=== PATIENT | male | born 1950 | race Caucasian/White ===

== ENCOUNTER 2017-07-25 23:31 | Emergency (ER) | payer MEDICAID ==
[2017-07-26 02:31] LABS: URINE PH (Dip) POC 5.5 (5.0-8.5)
[2017-07-26 02:31] LABS: URINE BLOOD (Dip) POC Negative (NEGATIVE); URINE GLUCOSE (Dip) POC Negative (NEGATIVE); URINE KETONES (Dip) POC Negative (NEGATIVE); URINE LEUKOCYTE EST (Dip) POC Negative (NEGATIVE); URINE NITRITE (Dip) POC Negative (NEGATIVE); URINE TOTAL PROTEIN POC Negative (NEGATIVE)
[2017-07-26 02:35] LABS: ADD MAN DIFF? NO
[2017-07-26 02:38] LABS: BASOPHIL # 0.1 10^3/ul (0.0-0.1); BASOPHILS % 0.8 % (0.0-2.0); EOSINOPHILS # 0.2 10^3/ul (0.0-0.5); EOSINOPHILS % 2.6 % (0.0-7.0); HEMATOCRIT 41.3 % (42.0-52.0); LYMPHOCYTES # 2.1 10^3/ul (0.8-2.9); LYMPHOCYTES % 32.9 % (15.0-51.0); MEAN CORPUSCULAR HEMOGLOBIN 30.2 pg (29.0-33.0); MEAN CORPUSCULAR HGB CONC 33.9 g/dl (32.0-37.0); MEAN CORPUSCULAR VOLUME 89.2 fl (82.0-101.0); MEAN PLATELET VOLUME 9.1 fl (7.4-10.4); MONOCYTE # 0.6 10^3/ul (0.3-0.9); MONOCYTES % 8.7 % (0.0-11.0); NEUTROPHIL # 3.5 10^3/ul (1.6-7.5); NEUTROPHILS % 54.7 % (39.0-77.0); PLATELET COUNT 268 10^3/UL (140-415); RED BLOOD COUNT 4.63 10^6/ul (4.70-6.10); RED CELL DISTRIBUTION WIDTH 13.7 % (11.5-14.5)
[2017-07-26 02:38] LABS: WHITE BLOOD COUNT 6.5 10^3/ul (4.8-10.8)
[2017-07-26 02:59] LABS: ALANINE AMINOTRANSFERASE 33 IU/L (13-69); ALBUMIN 4.4 g/dl (3.3-4.9); ALBUMIN/GLOBULIN RATIO 1.33; ALKALINE PHOSPHATASE 69 IU/L (42-121); ANION GAP 15 (8-16); ASPARTATE AMINO TRANSFERASE 31 IU/L (15-46); BILIRUBIN,INDIRECT 0.1 mg/dl (0-1.1); BILIRUBIN,TOTAL 0.1 mg/dl (0.2-1.3); BLOOD UREA NITROGEN 8 mg/dl (7-20); CALCIUM 8.9 mg/dl (8.4-10.2); CARBON DIOXIDE 26 mmol/L (21-31); CHLORIDE 105 mmol/L (97-110); CREATININE 0.89 mg/dl (0.61-1.24); GLUCOSE 94 mg/dl (70-220); INR 0.93; LIPASE 238 U/L (23-300); PROTIME 12.6 Sec (11.9-14.9); SODIUM 142 mmol/L (135-144); TOTAL PROTEIN 7.7 g/dl (6.1-8.1)
== END 2017-07-26 05:33 | disposition home or self-care (01) ==
LOC: E/R 23:31
DX: R51 Headache (principal); I10 Essential (primary) hypertension; E11.9 Type 2 diabetes mellitus without complications; R07.9 Chest pain, unspecified
CPT/HCPCS: 36415; 70450; 80053; 80306; 81003; 83690; 85025; 85610; 85730; 99284-25

== ENCOUNTER 2018-11-20 18:39 | Inpatient (IN) | payer MEDICAID ==
[2018-11-20] MEDS: BELLADONNA/PHENOBARBITAL TAB PO (20:37)
[2018-11-20] MEDS: ONDANSETRON 4 MG INJ IV (20:37)
[2018-11-20] MEDS: LIDOCAINE/MYLANTA 40 ML BTL PO (20:37)
[2018-11-20] MEDS: FAMOTIDINE 20 MG INJ IV (20:37)
[2018-11-20] MEDS: HYDROmorphONE 1 MG/ML SYG IV (20:37)
[2018-11-20] MEDS: SOD CHLORIDE 0.9% 1,000 ML IV (20:37)
[2018-11-20 20:42] LABS: ADD MAN DIFF? NO
[2018-11-20 20:44] LABS: WHITE BLOOD COUNT 14.3 10^3/ul (4.8-10.8)
[2018-11-20 20:44] LABS: BASOPHILS % 0.2 % (0.0-2.0); EOSINOPHILS # 0.6 10^3/ul (0.0-0.5); EOSINOPHILS % 4.2 % (0.0-7.0); HEMATOCRIT 38.4 % (42.0-52.0); HEMOGLOBIN 12.7 g/dl (14.0-18.0); LYMPHOCYTES # 0.7 10^3/ul (0.8-2.9); LYMPHOCYTES % 4.6 % (15.0-51.0); MEAN CORPUSCULAR HGB CONC 33.1 g/dl (32.0-37.0); MEAN CORPUSCULAR VOLUME 87.7 fl (82.0-101.0); MEAN PLATELET VOLUME 9.5 fl (7.4-10.4); MONOCYTE # 0.7 10^3/ul (0.3-0.9); MONOCYTES % 5.2 % (0.0-11.0); NEUTROPHIL # 12.2 10^3/ul (1.6-7.5); NEUTROPHILS % 85.2 % (39.0-77.0); PLATELET COUNT 178 10^3/UL (140-415); RED BLOOD COUNT 4.38 10^6/ul (4.70-6.10); RED CELL DISTRIBUTION WIDTH 15.2 % (11.5-14.5)
[2018-11-20 20:55] LABS: ALANINE AMINOTRANSFERASE 14 IU/L (13-69); ALBUMIN 4.1 g/dl (3.3-4.9); ALBUMIN/GLOBULIN RATIO 1.24; ALKALINE PHOSPHATASE 88 IU/L (42-121); ANION GAP 11 (5-13); ASPARTATE AMINO TRANSFERASE 19 IU/L (15-46); BILIRUBIN,INDIRECT 1.2 mg/dl (0-1.1); BILIRUBIN,TOTAL 1.2 mg/dl (0.2-1.3); BLOOD UREA NITROGEN 12 mg/dl (7-20); CALCIUM 9.1 mg/dl (8.4-10.2); CARBON DIOXIDE 29 mmol/L (21-31); CHLORIDE 97 mmol/L (97-110); CREATININE 0.76 mg/dl (0.61-1.24); Estimated GFR > 60 mL/min (>60); GLUCOSE 113 mg/dl (70-220); LIPASE 55 U/L (23-300); POTASSIUM 3.5 mmol/L (3.5-5.1); SODIUM 137 mmol/L (135-144); TOTAL PROTEIN 7.4 g/dl (6.1-8.1)
[2018-11-20] MEDS: SOD CHLORIDE 0.9% 100 ML (22:49)
[2018-11-20] MEDS: IOHEXOL 300MG/ML 150 ML BTL (22:50)
[2018-11-21] MEDS: ERTAPENEM SODIUM 1 GM in SOD CHLORIDE 0.9% 100 ML IVPB (00:43)
[2018-11-21] MEDS ORDERED: DOCUSATE SODIUM 100 MG CAP PO (01:00)
[2018-11-21] MEDS ORDERED: NAPROXEN 500 MG TAB PO (01:00)
[2018-11-21] MEDS ORDERED: ACETAMINOPHEN 325 MG TAB PO (01:00)
[2018-11-21] MEDS ORDERED: BISACODYL (EC) 5 MG TAB PO (01:00)
[2018-11-21] MEDS ORDERED: ONDANSETRON 4 MG INJ IV (01:00)
[2018-11-21] MEDS ORDERED: NACL 0.9% 3 ML SYG IV (01:00)
[2018-11-21] MEDS: SOD CHLORIDE 0.9% 1,000 ML IV ×2 (02:51→07:35)
[2018-11-21 05:30] LABS: ADD MAN DIFF? NO
[2018-11-21 05:35] LABS: WHITE BLOOD COUNT 13.1 10^3/ul (4.8-10.8)
[2018-11-21 05:35] LABS: BASOPHILS % 0.3 % (0.0-2.0); EOSINOPHILS # 1.1 10^3/ul (0.0-0.5); HEMATOCRIT 34.5 % (42.0-52.0); HEMOGLOBIN 11.5 g/dl (14.0-18.0); LYMPHOCYTES # 0.6 10^3/ul (0.8-2.9); LYMPHOCYTES % 4.7 % (15.0-51.0); MEAN CORPUSCULAR HGB CONC 33.3 g/dl (32.0-37.0); MEAN CORPUSCULAR VOLUME 87.1 fl (82.0-101.0); MEAN PLATELET VOLUME 9.9 fl (7.4-10.4); MONOCYTE # 0.7 10^3/ul (0.3-0.9); MONOCYTES % 5.7 % (0.0-11.0); NEUTROPHIL # 10.6 10^3/ul (1.6-7.5); NEUTROPHILS % 80.8 % (39.0-77.0); PLATELET COUNT 164 10^3/UL (140-415); RED BLOOD COUNT 3.96 10^6/ul (4.70-6.10); RED CELL DISTRIBUTION WIDTH 15.1 % (11.5-14.5)
[2018-11-21] MEDS: PIPER-TAZO 3.375 GM IV (PMX) 100 ML IVPB ×4 (05:44→23:55)
[2018-11-21 05:54] LABS: HEMOGLOBIN A1C 5.3 % (0-5.9)
[2018-11-21 06:02] LABS: ALANINE AMINOTRANSFERASE 12 IU/L (13-69); ALBUMIN 3.2 g/dl (3.3-4.9); ALBUMIN/GLOBULIN RATIO 1.06; ALKALINE PHOSPHATASE 72 IU/L (42-121); ANION GAP 8 (5-13); ASPARTATE AMINO TRANSFERASE 16 IU/L (15-46); BILIRUBIN,INDIRECT 0.9 mg/dl (0-1.1); BILIRUBIN,TOTAL 0.9 mg/dl (0.2-1.3); BLOOD UREA NITROGEN 11 mg/dl (7-20); CALCIUM 8.3 mg/dl (8.4-10.2); CARBON DIOXIDE 25 mmol/L (21-31); CHLORIDE 104 mmol/L (97-110); CHOL/HDL RATIO 2.3 RATIO; CHOLESTEROL 132 mg/dl (100-200); CREATININE 0.71 mg/dl (0.61-1.24); Estimated GFR > 60 mL/min (>60); GLUCOSE 92 mg/dl (70-220); HDL CHOLESTEROL 57 mg/dl (30-78); LDL CHOLESTEROL,CALCULATED 59 mg/dl; MAGNESIUM 2.2 mg/dl (1.7-2.5); POTASSIUM 3.4 mmol/L (3.5-5.1); SODIUM 137 mmol/L (135-144); TOTAL PROTEIN 6.2 g/dl (6.1-8.1); TRIGLYCERIDES 78 mg/dl (0-149)
[2018-11-21] MEDS ORDERED: LORAZEPAM 2 MG INJ IV ×2 (07:00)
[2018-11-21] MEDS: MULTIVITAMINS 10 ML, THIAMINE 100 MG, FOLIC ACID 1 MG in SOD CHLORIDE 0.9% 1,000 ML IVPB (07:00)
[2018-11-21] MEDS ORDERED: POTASSIUM CHLORIDE 20 MEQ in SOD CHLORIDE 0.9% 1,000 ML IV (08:55)
[2018-11-21 09:02] LABS: ETHANOL < 10.0 mg/dl (0-0)
[2018-11-21] MEDS: THIAMINE 100 MG TAB PO (09:21)
[2018-11-21] MEDS: FOLIC ACID 1 MG TAB PO (09:22)
[2018-11-21] MEDS: LOSARTAN 50 MG TAB PO (09:22)
[2018-11-21] MEDS: CHLORDIAZEPOXIDE 25 MG CAP PO ×3 (09:22→20:36)
[2018-11-21 11:29] LABS: AMPHETAMINE/METHAMPHETAMINE Negative (NEGATIVE); BENZODIAZEPINES Negative (NEGATIVE); CANNABINOIDS Negative (NEGATIVE); COCAINE Negative (NEGATIVE)
[2018-11-21 11:39] LABS: BARBITURATES Positive (NEGATIVE); OPIATES Positive (NEGATIVE)
[2018-11-21] MEDS: NS + KCL 20 MEQ 1,000 ML IV ×2 (12:32→23:55)
[2018-11-21] MEDS: morphine 2 MG INJ IV (15:33)
[2018-11-21] MEDS: ONDANSETRON 4 MG INJ IV (15:33)
[2018-11-21] MEDS: RANITIDINE 150 MG TAB PO (20:35)
[2018-11-22] MEDS: PIPER-TAZO 3.375 GM IV (PMX) 100 ML IVPB ×3 (05:52→17:38)
[2018-11-22 05:56] LABS: ADD MAN DIFF? NO
[2018-11-22 05:59] LABS: BASOPHILS % 0.3 % (0.0-2.0); EOSINOPHILS # 1.6 10^3/ul (0.0-0.5); HEMATOCRIT 35.5 % (42.0-52.0); HEMOGLOBIN 11.9 g/dl (14.0-18.0); LYMPHOCYTES % 9.2 % (15.0-51.0); MEAN CORPUSCULAR HEMOGLOBIN 29.5 pg (29.0-33.0); MEAN CORPUSCULAR HGB CONC 33.5 g/dl (32.0-37.0); MEAN CORPUSCULAR VOLUME 87.9 fl (82.0-101.0); MEAN PLATELET VOLUME 9.7 fl (7.4-10.4); MONOCYTE # 0.9 10^3/ul (0.3-0.9); MONOCYTES % 8.1 % (0.0-11.0); NEUTROPHIL # 7.2 10^3/ul (1.6-7.5); NEUTROPHILS % 66.9 % (39.0-77.0); PLATELET COUNT 179 10^3/UL (140-415); RED BLOOD COUNT 4.04 10^6/ul (4.70-6.10)
[2018-11-22 05:59] LABS: WHITE BLOOD COUNT 10.8 10^3/ul (4.8-10.8)
[2018-11-22 06:25] LABS: ALANINE AMINOTRANSFERASE 14 IU/L (13-69); ALBUMIN 2.8 g/dl (3.3-4.9); ALKALINE PHOSPHATASE 58 IU/L (42-121); ANION GAP 6 (5-13); ASPARTATE AMINO TRANSFERASE 11 IU/L (15-46); BILIRUBIN,INDIRECT 0.8 mg/dl (0-1.1); BILIRUBIN,TOTAL 0.8 mg/dl (0.2-1.3); BLOOD UREA NITROGEN 9 mg/dl (7-20); CALCIUM 7.9 mg/dl (8.4-10.2); CARBON DIOXIDE 25 mmol/L (21-31); CHLORIDE 107 mmol/L (97-110); Estimated GFR > 60 mL/min (>60); GLUCOSE 105 mg/dl (70-220); POTASSIUM 3.2 mmol/L (3.5-5.1); SODIUM 138 mmol/L (135-144); TOTAL PROTEIN 5.6 g/dl (6.1-8.1)
[2018-11-22] MEDS: NS + KCL 20 MEQ 1,000 ML IV ×2 (08:30→12:20)
[2018-11-22] MEDS ORDERED: CHLORDIAZEPOXIDE 25 MG CAP PO (09:00)
[2018-11-22] MEDS: POTASSIUM CHLORIDE (SR) 20 MEQ TAB PO (09:10)
[2018-11-22] MEDS: CHLORDIAZEPOXIDE 25 MG CAP PO ×3 (09:11→20:24)
[2018-11-22] MEDS: THIAMINE 100 MG TAB PO (09:11)
[2018-11-22] MEDS: FOLIC ACID 1 MG TAB PO (09:11)
[2018-11-22] MEDS: LOSARTAN 50 MG TAB PO (09:11)
[2018-11-22] MEDS: MULTIVITAMINS THERAPEUTIC TAB PO (09:12)
[2018-11-22] MEDS ORDERED: SUCRALFATE 1 GM TAB PO (11:00)
[2018-11-22] MEDS: SUCRALFATE 1 GM TAB PO ×3 (12:19→20:23)
[2018-11-22] MEDS: PANTOPRAZOLE (EC) 40 MG TAB PO (17:38)
[2018-11-23] MEDS: NS + KCL 20 MEQ 1,000 ML IV ×2 (00:10→11:52)
[2018-11-23] MEDS: PIPER-TAZO 3.375 GM IV (PMX) 100 ML IVPB ×2 (00:10→06:09)
[2018-11-23 06:01] LABS: ADD MAN DIFF? NO
[2018-11-23] MEDS: PANTOPRAZOLE (EC) 40 MG TAB PO ×2 (06:08→17:45)
[2018-11-23 06:12] LABS: HEMATOCRIT 35.9 % (42.0-52.0); HEMOGLOBIN 12.2 g/dl (14.0-18.0); MEAN CORPUSCULAR HEMOGLOBIN 29.5 pg (29.0-33.0); MEAN CORPUSCULAR VOLUME 86.7 fl (82.0-101.0); RED BLOOD COUNT 4.14 10^6/ul (4.70-6.10)
[2018-11-23 06:12] LABS: WHITE BLOOD COUNT 8.3 10^3/ul (4.8-10.8)
[2018-11-23 06:13] LABS: BASOPHILS % 0.5 % (0.0-2.0); EOSINOPHILS # 1.3 10^3/ul (0.0-0.5); EOSINOPHILS % 16.2 % (0.0-7.0); LYMPHOCYTES # 1.2 10^3/ul (0.8-2.9); LYMPHOCYTES % 14.3 % (15.0-51.0); MEAN PLATELET VOLUME 10.1 fl (7.4-10.4); MONOCYTES % 12.6 % (0.0-11.0); NEUTROPHIL # 4.7 10^3/ul (1.6-7.5); NEUTROPHILS % 56.2 % (39.0-77.0); PLATELET COUNT 201 10^3/UL (140-415)
[2018-11-23 06:39] LABS: ALANINE AMINOTRANSFERASE 17 IU/L (13-69); ALBUMIN 2.6 g/dl (3.3-4.9); ALBUMIN/GLOBULIN RATIO 0.92; ALKALINE PHOSPHATASE 53 IU/L (42-121); ANION GAP 3 (5-13); ASPARTATE AMINO TRANSFERASE 15 IU/L (15-46); BILIRUBIN,INDIRECT 0.5 mg/dl (0-1.1); BILIRUBIN,TOTAL 0.5 mg/dl (0.2-1.3); BLOOD UREA NITROGEN 6 mg/dl (7-20); CALCIUM 7.9 mg/dl (8.4-10.2); CARBON DIOXIDE 24 mmol/L (21-31); CHLORIDE 110 mmol/L (97-110); CREATININE 0.67 mg/dl (0.61-1.24); Estimated GFR > 60 mL/min (>60); GLUCOSE 108 mg/dl (70-220); POTASSIUM 3.8 mmol/L (3.5-5.1); SODIUM 137 mmol/L (135-144); TOTAL PROTEIN 5.4 g/dl (6.1-8.1)
[2018-11-23] MEDS: CHLORDIAZEPOXIDE 25 MG CAP PO ×2 (08:08→21:32)
[2018-11-23] MEDS: SUCRALFATE 1 GM TAB PO ×4 (08:09→21:31)
[2018-11-23] MEDS: LOSARTAN 50 MG TAB PO (08:09)
[2018-11-23] MEDS: THIAMINE 100 MG TAB PO (08:09)
[2018-11-23] MEDS: MULTIVITAMINS THERAPEUTIC TAB PO (08:09)
[2018-11-23] MEDS: FOLIC ACID 1 MG TAB PO (08:09)
[2018-11-23] MEDS ORDERED: CHLORDIAZEPOXIDE 25 MG CAP PO (09:00)
[2018-11-23] MEDS: CIPROFLOXACIN 500 MG TAB PO ×2 (11:51→17:45)
[2018-11-23] MEDS: metroNIDAZOLE 500 MG TAB PO ×3 (11:52→21:34)
[2018-11-23] MEDS: CHOLECALCIFEROL 2,000 UNIT CAP PO (11:52)
[2018-11-23] MEDS: LACTOBACILLUS RHAMNOSUS CAP PO ×2 (12:59→21:32)
[2018-11-24] MEDS: ACETAMINOPHEN 325 MG TAB PO (03:45)
[2018-11-24 05:33] LABS: ADD MAN DIFF? NO
[2018-11-24 05:40] LABS: WHITE BLOOD COUNT 8.7 10^3/ul (4.8-10.8)
[2018-11-24 05:40] LABS: BASOPHILS % 0.5 % (0.0-2.0); EOSINOPHILS # 1.1 10^3/ul (0.0-0.5); EOSINOPHILS % 12.9 % (0.0-7.0); HEMATOCRIT 34.4 % (42.0-52.0); HEMOGLOBIN 11.4 g/dl (14.0-18.0); LYMPHOCYTES # 1.3 10^3/ul (0.8-2.9); LYMPHOCYTES % 15.3 % (15.0-51.0); MEAN CORPUSCULAR HEMOGLOBIN 28.8 pg (29.0-33.0); MEAN CORPUSCULAR HGB CONC 33.1 g/dl (32.0-37.0); MEAN CORPUSCULAR VOLUME 86.9 fl (82.0-101.0); MONOCYTE # 1.3 10^3/ul (0.3-0.9); MONOCYTES % 14.5 % (0.0-11.0); NEUTROPHIL # 4.9 10^3/ul (1.6-7.5); NEUTROPHILS % 56.3 % (39.0-77.0); PLATELET COUNT 225 10^3/UL (140-415); RED BLOOD COUNT 3.96 10^6/ul (4.70-6.10); RED CELL DISTRIBUTION WIDTH 15.5 % (11.5-14.5)
[2018-11-24] MEDS: metroNIDAZOLE 500 MG TAB PO ×3 (05:59→21:21)
[2018-11-24] MEDS: PANTOPRAZOLE (EC) 40 MG TAB PO ×2 (05:59→17:46)
[2018-11-24] MEDS: CIPROFLOXACIN 500 MG TAB PO ×2 (05:59→17:48)
[2018-11-24 06:09] LABS: ALANINE AMINOTRANSFERASE 13 IU/L (13-69); ALBUMIN 2.8 g/dl (3.3-4.9); ALKALINE PHOSPHATASE 50 IU/L (42-121); ANION GAP 4 (5-13); ASPARTATE AMINO TRANSFERASE 15 IU/L (15-46); BILIRUBIN,INDIRECT 0.2 mg/dl (0-1.1); BILIRUBIN,TOTAL 0.2 mg/dl (0.2-1.3); BLOOD UREA NITROGEN 7 mg/dl (7-20); CALCIUM 8.6 mg/dl (8.4-10.2); CARBON DIOXIDE 25 mmol/L (21-31); CHLORIDE 108 mmol/L (97-110); CREATININE 0.68 mg/dl (0.61-1.24); Estimated GFR > 60 mL/min (>60); GLUCOSE 122 mg/dl (70-220); POTASSIUM 3.8 mmol/L (3.5-5.1); SODIUM 137 mmol/L (135-144); TOTAL PROTEIN 5.6 g/dl (6.1-8.1)
[2018-11-24] MEDS: MULTIVITAMINS THERAPEUTIC TAB PO (08:43)
[2018-11-24] MEDS: LOSARTAN 50 MG TAB PO (08:44)
[2018-11-24] MEDS: SUCRALFATE 1 GM TAB PO ×4 (08:44→21:27)
[2018-11-24] MEDS: CHLORDIAZEPOXIDE 25 MG CAP PO (08:44)
[2018-11-24] MEDS: FOLIC ACID 1 MG TAB PO (08:44)
[2018-11-24] MEDS: THIAMINE 100 MG TAB PO (08:44)
[2018-11-24] MEDS: CHOLECALCIFEROL 2,000 UNIT CAP PO (08:44)
[2018-11-24] MEDS: LACTOBACILLUS RHAMNOSUS CAP PO ×3 (08:44→21:27)
[2018-11-24 14:35] LABS: OCCULT BLOOD STOOL NEGATIVE (NEGATIVE)
[2018-11-25] MEDS: CIPROFLOXACIN 500 MG TAB PO (05:35)
[2018-11-25] MEDS: PANTOPRAZOLE (EC) 40 MG TAB PO (05:35)
[2018-11-25] MEDS: metroNIDAZOLE 500 MG TAB PO ×2 (05:35→13:11)
[2018-11-25] MEDS: THIAMINE 100 MG TAB PO (08:07)
[2018-11-25] MEDS: LOSARTAN 50 MG TAB PO (08:07)
[2018-11-25] MEDS: SUCRALFATE 1 GM TAB PO ×2 (08:07→13:11)
[2018-11-25] MEDS: MULTIVITAMINS THERAPEUTIC TAB PO (08:07)
[2018-11-25] MEDS: CHOLECALCIFEROL 2,000 UNIT CAP PO (08:07)
[2018-11-25] MEDS: FOLIC ACID 1 MG TAB PO (08:07)
[2018-11-25] MEDS: LACTOBACILLUS RHAMNOSUS CAP PO ×2 (08:07→13:11)
[2018-11-25] MEDS: hydrALAzine 20 MG INJ IV (15:43)
== END 2018-11-25 17:30 | disposition home or self-care (01) | DRG 395 ==
LOC: E/R 18:39 → 2NE 11-21 00:34
DX: K35.80 Unspecified acute appendicitis (principal); I10 Essential (primary) hypertension; E11.9 Type 2 diabetes mellitus without complications; F10.10 Alcohol abuse, uncomplicated; E78.5 Hyperlipidemia, unspecified; R19.7 Diarrhea, unspecified; Z87.11 Personal history of peptic ulcer disease; Z89.421 Acquired absence of other right toe(s); Z59.0 Homelessness
CPT/HCPCS: 73000; 74177; 76705; 80053; 80061; 80307; 82270; 82306; 83036; 83690; 83735; 84443; 85025; 96374; 96375; 99285-25